=== PATIENT | female | born 1990 | race Caucasian/White ===

== ENCOUNTER 2017-04-23 16:31 | Emergency (ER) | payer OTHER, MEDICAID ==
[~2017-04-23] VITALS: Ht 165.1 cm; Wt 56.7 kg
[2017-04-23 16:41] VITALS: Ht 165.1 cm; Wt 56.7 kg
[2017-04-23 17:14] LABS: BASOPHIL % 0.8 % (0-2); PLATELET COUNT 185 x10^3mcL (130-400); RED CELL DISTRIBUTION WIDTH 12.9 % (11.5-14.5)
[2017-04-23 17:24] LABS: CALCIUM 8.7 mg/dL (8.5-10.1); CARBON DIOXIDE 26.7 mmol/L (21-32); CHLORIDE SERUM 104 mmol/L (98-107); CREATININE SERUM 0.8 mg/dL (0.6-1.0); GFR1 > 60 mL/min; GLUCOSE SERUM 91 mg/dL (74-106); SODIUM SERUM 141 mmol/L (136-145)
[2017-04-23 17:28] LABS: ALBUMIN 3.8 g/dL (3.4-5.0); ALKALINE PHOSPHATASE 66 U/L (46-116); AST/SGOT 24 U/L (15-37); BILIRUBIN TOTAL 0.25 mg/dL (0.20-1.00); CHOLESTEROL 136 mg/dL (<200)
[2017-04-23 17:44] LABS: AMPHETAMINE QUAL UR NONE DETECTED (NEG <=1000)
[2017-04-23 17:49] LABS: ALT/SGPT 23 U/L (14-59)
[2017-04-23 21:55] VITALS: BP 117/70
== END 2017-04-23 21:55 ==
LOC: ED 16:31
PROVIDERS: Specialist
DX: R56.9 Unspecified convulsions (principal); F31.9 Bipolar disorder, unspecified; F41.9 Anxiety disorder, unspecified; Z88.6 Allergy status to analgesic agent; Z88.8 Allergy status to other drugs, medicaments and biological substances
CPT/HCPCS: 83880; G0480; J1165; J2060; J7030; Q0092